=== PATIENT | female | born 2000 ===

== ENCOUNTER 2024-01-11 21:38 | Emergency (ER) | payer OTHER, SELFPAY ==
[2024-01-11 21:41] VITALS: BP 118/70
[2024-01-11 22:06] LABS: % Basophils 0.3 % (0-2); % Eosinophils 0.7 % (0-6); % Immature Granulocytes 0.3 % (0-0.5); % Lymphocytes 29.1 % (20.5-51.1); % Monocytes 5.2 % (1.7-9.3); % Neutrophils 64.4 % (42.2-75.2); Absolute Eosinophils 0.1 10^3/uL (0-0.7); Absolute Monocytes 0.4 10^3/uL (0.1-0.6); Absolute Neutrophils 4.5 10^3/uL (1.4-6.5); Hematocrit 34.9 % (37.0-47.0); Hemoglobin 11.9 g/dL (12.0-16.0); Mean Corp Hgb Conc. 34.1 g/dL (33.0-37.0); Mean Corpuscular Hgb 27.2 pg (27.0-31.0); Mean Corpuscular Volume 79.9 fL (81.0-99.0); Mean Platelet Volume 10.7 fL (7.4-10.4); Nucleated Red Blood Cells % 0 %; Platelet Count 223 10^3/uL (130-400); Red Blood Cell Count 4.37 10^6/uL (4.20-5.40); White Blood Cell Count 6.9 10^3/uL (4.8-10.8)
[2024-01-11 22:15] LABS: HCG, Serum Qualitative Screen Negative
[2024-01-11 22:16] LABS: Urine Albumin Negative (Neg - Trace); Urine Bilirubin Negative (Negative); Urine Character Clear (Clear); Urine Color Straw; Urine Glucose Negative (Negative); Urine Ketone Negative (Negative); Urine Leukocyte 2+ (Negative); Urine Nitrite Negative (Negative); Urine Occult Blood 4+ (Negative); Urine Urobilinogen Negative (Neg - 1+)
[2024-01-11 22:21] LABS: ALT (SGPT) 23 U/L (0-35); AST (SGOT) 26 U/L (14-36); Albumin 4.8 g/dl (3.5-5.0); Alkaline Phosphatase 69 U/L (38-126); Blood Urea Nitrogen 16 mg/dl (7-17); Calcium 9.6 mg/dl (8.4-10.2); Carbon Dioxide 25 mmol/L (22-30); Chloride 103 mmol/L (98-107); Glucose 132 mg/dl (70-99); Potassium 3.6 mmol/L (3.5-5.1); Sodium 139 mmol/L (135-145); Total Bilirubin 0.2 mg/dl (0.2-1.3); Total Protein 7.9 g/dl (6.3-8.2); eGFR > 60.00
[2024-01-11 22:29] LABS: Urine Bacteria Few (Negative); Urine Red Blood Cell 0-2 /HPF (0-2); Urine Squamous Cell >30 /LPF (Few)
--- NOTE | 2024-01-12 02:26 | ED.GENMED ---
History of Present Illness
General
Chief Complaint: Urinary Symptoms
Source: patient
Exam Limitations: none
Time Seen by Provider: 01/12/24 01:16
Nursing documentation reviewed up to this point in time: agreed with
Travel History
Have you had any contact with someone who has COVID-19?: No
Do you have any symptoms of coronavirus? Fever > 100 degrees, chills, cough, shortness of breath, sore throat, loss of taste or smell, muscle aches, or headache?: No
History of Present Illness
History of Present Illness:
23 y/o F with no h/o chronic medical problems
here with suprapubic pain, urinary frqueny/urgency x 2 days, dysuria
then she also got her menstrual cycle
no fever, chills, nausea, vomiting, diarrhea, vaginal discharge
she has never had UTI before
has had chlamydia in the past which was treated
has been living with her boyfriend for 2 weeks
pt is not concerned about STI but is agreeable to testing
has used 2 pads today
Past History
Past History
ED Past Medical History: None
ED Past Surgical History: None
Social History
Tobacco: Non-smoker
Alcohol: None
Review of Systems
Review of Systems
Allergies reviewed?: Yes
All Other Systems: Not applicable
Phy Exam
Physical Exam
Physical Exam:
GENERAL: Alert , in no apparent distress
EYE: pupils equal and reactive
NECK: Supple
ENT: o/p clr, mmm.
CARDIAC: Regular rate and rhythm .
LUNGS: Clear breath sounds bilaterally, no acute respiratory distress, no wheezes/rales/rhonchi
ABDOMEN: Soft, mild suprapubic tendenres no r/g, no cvat, normal bowel sounds
: deferred
NEUROLOGICAL: Alert and oriented, no focal neuro deficits
SKIN: Warm and dry, skin intact.
MUSCULOSKELETAL: No edema, well perfused. neg marisela's sign
PSYCH: Normal and appropriate interaction.
Course
Orders/Labs/Results
Orders:
Orders
01/11/24 21:45
Test Result ONCE
01/11/24 21:54
CMP [Comprehensive Metabolic Panel] Urgent
Complete Blood Count/With Diff Urgent
HCG, Serum Qualitative Screen Urgent
Chlamydia/GC by PCR Urgent
[facility] Source: U
Specimen Description:
Date Specimen was Collected: 01/11/24
Time Specimen was Collected: 21:45
Comment: ADDED
Urine Culture Urgent
[facility] Source: U
Specimen Description:
Date Specimen was Collected: 01/11/24
Time Specimen was Collected: 21:45
Comment: ADDED
01/11/24 21:56
Urinalysis Urgent
Date Specimen was Collected: 01/11/24
Time Specimen was Collected: 21:45
Urine Microscopic Urgent
Date Specimen was Collected: 01/11/24
Time Specimen was Collected: 21:45
01/12/24 02:25
Add On - Microbiology Urgent
Tests Added?: chlamydia/gnorrhea urine
01/12/24 02:28
Add On - Microbiology Urgent
Tests Added?: urine culture
Cephalexin Monohydrate [Keflex] 500 mg PO NOW STA
Ibuprofen [Motrin] 600 mg PO NOW STA
Phenazopyridine HCl [Pyridium] 200 mg PO NOW STA
Abnormal Lab Results
01/11/24 01/11/24
21:54 21:56
Hgb 11.9 L g/dL
(12.0-16.0)
Hct 34.9 L %
(37.0-47.0)
MCV 79.9 L fL
(81.0-99.0)
MPV 10.7 H fL
(7.4-10.4)
Creatinine 0.5 L mg/dL
(0.6-1.0)
Glucose 132 H mg/dl
(70-99)
Urine Occult Blood 4+ A
(Negative)
Ur Leukocyte Esterase 2+ A
(Negative)
Urine WBC 6-10 A /HPF
(0-5)
Urine Bacteria Few A
(Negative)
01/11/24 21:54
01/11/24 21:54
Vital Signs
Initial and Last Documented VS:
Initial Vital Signs
Temp Pulse Resp BP Pulse Ox
99 F 80 20 118/70 100
01/11/24 21:41 01/11/24 21:41 01/11/24 21:41 01/11/24 21:41 01/11/24 21:41
Last Documented Vital Signs
Temp Pulse Resp BP Pulse Ox
97.9 F 64 16 104/62 99
01/12/24 02:39 01/12/24 02:39 01/12/24 02:39 01/12/24 02:39 01/12/24 02:39
MDM/Problems Addressed
Differential Diagnosis Includes:
dysmenorrhea, uti, urethertitis
MDM/Problems Addressed:
23 y/o F with no sig pmh
here with 2 days dysuria, frequency, urgency, suprapubic pain
she has never had UTI before
has had to urinate every 10 minutes before arrival for 1 hour
pt also started her menstural cycle which was due
is sexually active with 1 partner and is not concerned about sti but would still like testing
no fever, vomiting, chills, trouble walking
on exam pt has mild suprapubic tendenress
i am not concerned about PID at this point
she already gave urine sample which was contaminated and without wiping first. to this i added on chlamgyia/gonrorhea urine testing
she then gave a clean catch which was sent for urine culture but i will treat her with abx keflex based on symptoms
return precautions
pt will need notification if her gc/ct comes back positive.
*Critical Care Note
Total Time (30-74mins, 75-104mins- exclusive of procedures): Not Applicable
ED Attending Note
-
Portions of this chart may have been created with voice recognition software.� Occasional wrong word or��sound alike� substitutions may have occurred due to the inherent limitations of voice recognition software.
Discharge Plan
Departure
Patient Disposition: Home (Routine Discharge)
Date of Disposition: 01/12/24
Time of Disposition: 02:32
Patient with high blood pressure during this ER visit?: No
Condition: Fair
Covid-19: Not Applicable
Discharge Problem:
UTI (urinary tract infection)
Instructions: Urinary Tract Infection, Adult (DC)
Prescriptions:
New
cephalexin 500 mg capsule
500 mg PO Q8H Qty: 21 0RF
phenazopyridine [Pyridium] 200 mg tablet
200 mg PO TID PRN (Reason: Pain) Qty: 6 0RF
ibuprofen 600 mg tablet
600 mg PO Q8H PRN (Reason: Pain) Qty: 20 0RF
Activity Restrictions/Additional Instructions:
your symptoms are probably due to a bladder infection. take keflex 3 times a day for 7 days. this is an antibiotic.
for pain take motrin 600 mg every 8 hours as needed for pain. you can also take pyridium 200 mg every 8hours (3 times a day) for 2 days for bladder pain. this will color your pee orange.
drink fluids
we tested you for gonorrhea and chlamydia just in case and you will get called if positive
return for: fever, severe pain, back pain, vomiting, or any concerns.
latisha s�ntomas probablemente se deben a rehana infecci�n de la vejiga. tome keflex 3 veces al d�a arsen 7 d�as. vonda es un antibi�marleny.
para el dolor, tome motrin 600 mg cada 8 horas seg�n sea necesario para el dolor. Tambi�n puedes dianne piridio 200 mg cada 8 horas (3 veces al d�a) arsen 2 d�as para el dolor de vejiga. [place] colorear� tu orina de naranja.
beber l�quidos
Le hicimos pruebas de gonorrea y clamidia por si acaso y lo llamar�n si es positivo.
Regrese por: fiebre, dolor intenso, dolor de espalda, v�mitos o cualquier inquietud.
Interventions
Interventions:
*Risk Screen - Suicide Last Done: 01/12/24 01:39
*General Assessment Last Done: 01/12/24 01:39
*Neglect/Abuse Screening Last Done: 01/12/24 01:39
ED- Fall Risk Assessment Last Done: 01/12/24 02:45
*ED COVID-19 Vaccine History Last Done: 01/12/24 01:39
*Nursing Disposition Last Done: 01/12/24 02:45
YD-Lheiif-Ketglgbvzz Assessment Last Done: 01/12/24 01:39
ED-Female Genitourinary Assessment Last Done: 01/12/24 01:39
Discharge Date and Time
Discharge Date/Time: 01/12/24 02:50
[2024-01-12] MEDS: Pyridium 200 MG PO (02:37)
[2024-01-12] MEDS: KEFLEX 500 MG PO (02:37)
[2024-01-12] MEDS: MOTRIN 600 MG PO (02:37)
[2024-01-12 02:39] VITALS: BP 104/62
== END 2024-01-12 02:50 | disposition home or self-care (01) ==
LOC: EMR 21:38
PROVIDERS: Emergency Medicine; EMERGENCY PHYSICIAN Emergency Medicine
DX: N39.0 Urinary tract infection, site not specified (principal)
CPT/HCPCS: 99283; 80053; 81003; 81015; 84703; 85025; 87086; 87491; 87591

== ENCOUNTER 2025-06-04 00:28 | Emergency (ER) | payer MEDICAID, SELFPAY ==
[2025-06-04 00:35] VITALS: BP 121/82
--- NOTE | 2025-06-04 01:33 | ED.GENMED ---
History of Present Illness
General
Chief Complaint: Abdominal Pain
Source: patient
Exam Limitations: none
Time Seen by Provider: 06/04/25 01:21
Nursing documentation reviewed up to this point in time: agreed with
History of Present Illness
History of Present Illness:
Patient presents to ED secondary to persistent lower abdominal pain over the past 2 weeks. Abdominal pain described as sharp, nonradiating, worse with movement, mildly improved at rest. Denies direct trauma. Denies fever or chills. Denies loss
of appetite. Denies back pain. Denies difficulty with urination. Denies vaginal bleeding. Patient's last menstrual cycle was approximately on May 01. Patient is sexually active without protection.
Past History
Past History
ED Past Medical History: None
ED Past Surgical History: None
Social History
Tobacco: Non-smoker
Alcohol: None
Review of Systems
Review of Systems
Allergies reviewed?: Yes
All Other Systems: ROS reviewed and negative except as documented in HPI and ROS
Constitutional: Reports no symptoms; Denies fever
ABD/GI: Reports abdominal pain; Denies nausea or vomiting
: Reports no symptoms
Musculoskeletal: Reports no symptoms
Skin: Reports no symptoms
Neurological: Reports no symptoms
Phy Exam
Physical Exam
Physical Exam:
Physical Exam
General: no apparent distress, not acutely ill. afebrile.
Head: nc/at. eomi
Neck: supple. normal range of motion.
Abdomen: normal bowel sounds. mild suprapubic/LLQ tenderness to palpation. no distention noted
: pelvic exam, mack Palma RN, at bedside: scant vaginal discharge. no CMT. mild left adnexal tenderness to palpation
Neuro: alert and oriented x 3. no focal neurological deficits
Skin: no rash
Psychiatric: well kept. interactive and cooperative
Extremities: no edema. no calf tenderness.
Course
Orders/Labs/Results
Orders:
Orders
06/04/25 01:33
Test Result ONCE
06/04/25 01:54
, Urine Qualitative Screen [HCG, Urine Qualitative Screen] Urgent
Date Specimen was Collected: 06/04/25
Time Specimen was Collected: 01:53
Urinalysis Reflex To Culture Urgent
Date Specimen was Collected: 06/04/25
Time Specimen was Collected: 01:53
Urine Microscopic Reflex Cult Urgent
Urine Culture Urgent
[facility] Source: U
Specimen Description:
Date Specimen was Collected: 06/04/25
Time Specimen was Collected: 01:53
06/04/25 02:05
US Pelvis W Transvag Combined Urgent
Comment:
Reason For Exam: suprapubic/LLQ tenderness to palpation
06/04/25 03:49
Add On- LAB Urgent
Tests Added?: urine GC/CT
06/04/25 04:10
Ceftriaxone Sodium [Rocephin] 500 mg IM NOW STA
Doxycycline [Vibramycin] 100 mg PO NOW STA
MetroNIDAZOLE [Flagyl] 500 mg PO NOW STA
06/04/25 04:14
Sterile Water [Sterile Water For Injection] 10 ml .ROUTE .STK-MED ONE
06/04/25 04:19
Lidocaine 1%/Epinephrine [Xylocaine 1% with Epinephrine] 20 ml .ROUTE .STK-MED ONE
06/04/25 04:33
Chlamydia/GC by PCR Urgent
[facility] Source: Endo-Cervical
Specimen Description:
Source:: ENDOCERVICAL
Date Specimen was Collected: 06/04/25
Time Specimen was Collected: 04:32
Abnormal Lab Results
06/04/25
01:54
Ur Occult Blood Reflex 1+ A
(Negative)
Leukocyte Esterase Rfl 3+ A
(Negative)
Urine RBC 7-10 A /HPF
(0-2)
Urine WBC (Reflex) >100 A /HPF
(0-5)
Urine Bacteria (Reflex) Many A
(Negative)
Urine Albumin (Reflex) 1+ A
(Neg - Trace)
Vital Signs
Initial and Last Documented VS:
Initial Vital Signs
Temp Pulse Resp BP Pulse Ox
99.1 F 85 16 121/82 98
06/04/25 00:35 06/04/25 00:35 06/04/25 00:35 06/04/25 00:35 06/04/25 00:35
Last Documented Vital Signs
Temp Pulse Resp BP Pulse Ox
99.1 F 85 16 107/61 100
06/04/25 00:35 06/04/25 00:35 06/04/25 00:35 06/04/25 04:08 06/04/25 03:28
MDM/Problems Addressed
MDM/Problems Addressed:
Pelvic ultrasound report reviewed and discussed with patient and her boyfriend. Secondary to patient's presentation along with urinalysis, as well as unprotected nature of sexual intercourse, offered pelvic exam.
Pelvic exam significant for moderate left adnexal tenderness without bleeding or discharge. Findings concerning for potential PID. As such, after discussion, decision made to start empiric antibiotics. In addition, strongly recommend [facility]
physician follow-up as an outpatient for further evaluation and treatment. Advised to return to ED with worsening symptoms.
GC/chlamydia pending.
*Pulse Oximetry
SaO2: 98
Oxygen Mode of Delivery: Room air
Patient hypoxic: no
*Critical Care Note
Total Time (30-74mins, 75-104mins- exclusive of procedures): Not Applicable
ED Attending Note
-
Portions of this chart may have been created with voice recognition software.� Occasional wrong word or��sound alike� substitutions may have occurred due to the inherent limitations of voice recognition software.
Discharge Plan
Departure
Patient Disposition: Home (Routine Discharge)
Date of Disposition: 06/04/25
Time of Disposition: 04:12
Patient with high blood pressure during this ER visit?: Yes
Condition: Good
Discharge Problem:
Acute pelvic inflammatory disease (PID)
Instructions: Pelvic inflammatory disease - ED discharge instructions
Prescriptions:
New
doxycycline monohydrate 100 mg capsule
100 mg PO BID Qty: 27 0RF
metronidazole 500 mg tablet
500 mg PO BID Qty: 27 0RF
No Action
cephalexin 500 mg capsule
500 mg PO Q8H Qty: 21 0RF
phenazopyridine [Pyridium] 200 mg tablet
200 mg PO TID PRN (Reason: Pain) Qty: 6 0RF
ibuprofen 600 mg tablet
600 mg PO Q8H PRN (Reason: Pain) Qty: 20 0RF
Referrals:
Brittnee Henry Lyford, DO [Active, Gynecology]
UNKNOWN - PT DOES,NOT KNOW [Family Provider]
Activity Restrictions/Additional Instructions:
As discussed, please follow-up with your primary care physician and/or [facility] [facility] physician for further evaluation and treatment. Please consider return to ED with worsening symptoms, i.e. fever/worsening pain/vomiting. Your prescriptions have been sent
electronically to [facility] pharmacy in [place].
Interventions
Interventions:
*Risk Screen - Suicide Last Done: 06/04/25 00:35
*General Assessment Last Done: 06/04/25 00:35
*Neglect/Abuse Screening Last Done: 06/04/25 00:35
*ED- Fall Risk Assessment Last Done: 06/04/25 01:48
*ED COVID-19 Vaccine History Last Done: 06/04/25 01:48
*Nursing Disposition Last Done: 06/04/25 04:38
YW-Qdalxb-Agrsyvxcat Assessment Last Done: 06/04/25 01:48
Discharge Date and Time
Discharge Date/Time: 06/04/25 04:42
Print Language: ITALIAN
[2025-06-04 01:47] VITALS: BP 102/64
[2025-06-04 01:48] VITALS: BMI 25.9
[2025-06-04 02:00] VITALS: BP 106/71
[2025-06-04 02:05] LABS: Urine Character Clear (Clear)
[2025-06-04 02:11] LABS: HCG, Urine Qualitative Screen Negative
[2025-06-04 02:25] LABS: Urine Squamous Cell >30 /LPF (Few); Urine White Cell >100 /HPF (0-5)
[2025-06-04 03:17] VITALS: BP 111/64
[2025-06-04 04:08] VITALS: BP 107/61
[2025-06-04] MEDS: FLAGYL 500 MG PO (04:25)
[2025-06-04] MEDS: VIBRAMYCIN 100 MG PO (04:26)
[2025-06-04] MEDS: ROCEPHIN 500 MG IM (04:26)
== END 2025-06-04 04:42 | disposition home or self-care (01) ==
LOC: EMR 00:28
PROVIDERS: EMERGENCY PHYSICIAN Emergency Medicine
DX: N73.9 Female pelvic inflammatory disease, unspecified (principal)
CPT/HCPCS: 96372; 99284; 76830; 76856; 81003; 81015; 81025; 87086; 87491; 87591